=== PATIENT | female | born 1985 | race Hispanic/Latino ===

== ENCOUNTER 2017-11-23 04:10 | Emergency (ER) | payer OTHER ==
[2017-11-23] MEDS ORDERED: METHYLPREDNISOLONE SOD SUCC 125MG/2ML VIAL ONE (04:20)
[2017-11-23] MEDS ORDERED: DEXAMETHASONE SOD PHOSPHATE 10MG/ML 1ML VIAL ONE (04:20)
[2017-11-23] MEDS ORDERED: ACETAMINOPHEN-CODEINE ELIXIR 5 ML UDCUP ONE (04:20)
== END 2017-11-23 04:37 | disposition home or self-care (01) ==
LOC: EDH 04:10
DX: M94.0 Chondrocostal junction syndrome [Tietze] (principal); J30.9 Allergic rhinitis, unspecified
CPT/HCPCS: 93005; 96372 ×2; 99284; J1100; J2930